=== PATIENT | female | born 1985 | race Caucasian/White ===

== ENCOUNTER 2023-12-20 12:56 | Emergency (ER) | payer MEDICAID, OTHER ==
[~2023-12-20] VITALS: Ht 175.3 cm; Wt 68.0 kg
[2023-12-20] MEDS: MIDAZOLAM HCL 5 MG/ML-1ML VIAL IM ONE (13:42)
[2023-12-20 14:32] LABS: Basophils # (auto) 0.1 10 ^3/uL (0-0.2); Basophils % (auto) 1.2 % (0.0-2.0); Eosinophils # (auto) 0 10 ^3/uL (0-0.8); Eosinophils % (auto) 0.1 % (0.0-7.0); Hematocrit 39.3 % (36.0-46.0); Hemoglobin 12.9 g/dL (12.2-16.2); Lymphocytes # (auto) 2.6 10 ^3/uL (0.4-5.4); Lymphocytes % (auto) 22.1 % (10.0-50.0); Mean Corpuscular Hemoglobin 26.1 pg (28.0-32.0); Mean Corpuscular Hgb Conc. 32.9 g/dL (32.0-36.0); Mean Corpuscular Volume 79.2 fL (80.0-100.0); Monocytes # (auto) 0.5 10 ^3/uL (0-1.3); Monocytes % (auto) 4.2 % (0.0-12.0); Neutrophils # (auto) 8.4 10 ^3/uL (1.6-8.6); Neutrophils % (auto) 72.4 % (37.0-80.0); Red Blood Cells 4.96 10^6/uL (4.0-5.20); Red Cell Distribution Width 16.7 % (11.8-14.3); White Blood Cell 11.6 10^3/uL (4.4-10.8)
[2023-12-20 14:44] LABS: Alanine Aminotransferase 14 U/L (7-40); Albumin 4.9 g/dL (3.2-4.8); Alkaline Phosphatase 89 U/L (46-116); Anion Gap 16 (5-15); Aspartate Aminotransferase 18 U/L (13-40); BUN/Creatinine Ratio 7.7 (10.0-20.0); Bilirubin, Total 0.2 mg/dL (0.2-1.0); Blood Alcohol 268.4 mg/dL (<10); Blood Urea Nitrogen 6 mg/dL (9-23); Calcium 9.4 mg/dL (8.7-10.4); Carbon Dioxide 17 mmol/L (20-30); Chloride 111 mmol/L (98-107); Glucose 104 mg/dL (74-106); Potassium 3.6 mmol/L (3.5-5.1); Sodium 144 mmol/L (136-145); Total Protein 8.2 g/dL (5.7-8.2)
[2023-12-20] MEDS: HALOPERIDOL LACTATE 5 MG/ML INJ VIAL IM ONE (15:44)
[2023-12-20] MEDS: HALOPERIDOL LACTATE 5 MG/ML INJ VIAL ONE (15:44)
[2023-12-20 19:30] VITALS: PULSE 84; RESP 16; O2SAT 100
[2023-12-21 07:17] VITALS: PULSE 68; RESP 16; TEMP 98.3; O2SAT 97
[2023-12-21 10:29] VITALS: BP 117/70; PULSE 86; RESP 17; O2SAT 98
== END 2023-12-21 10:43 | disposition home or self-care (01) ==
LOC: EDBD 12:56 → ER 12:56
DX: F10.129 Alcohol abuse with intoxication, unspecified (principal); R10.2 Pelvic and perineal pain; Y90.0 Blood alcohol level of less than 20 mg/100 ml
CPT/HCPCS: 36415; 80053; 80320; 84702; 85025; 96372; 99285; J1630; J2250